=== PATIENT | male | born 1960 | race American Indian/Alaskan Native ===

== ENCOUNTER 2018-07-09 14:09 | Emergency (ER) | payer OTHER ==
[2018-07-09 14:21] VITALS: BP 143/91; PULSE 79; RESP 18; TEMP 98.4; O2SAT 97
--- NOTE | 2018-07-09 17:13 | C.PDOC ---
History Of Present Illness 58 year old male patient presents to the ER with c/o right knee pain. Patient states it happened x5-6 days ago. Patient denies trauma and is able to ambulate. Time Seen by Provider: 07/09/18 14:46 Chief Complaint (Nursing): Lower Extremity Problem/Injury History Per: Patient History/Exam Limitations: no limitations Onset/Duration Of Symptoms: Days (x5-6) Current Symptoms Are (Timing): Still Present Past Medical History Reviewed: Historical Data, Nursing Documentation, Vital Signs Vital Signs: Last Vital Signs Temp 98.4 F 07/09/18 14:18 Pulse 79 07/09/18 14:18 Resp 18 07/09/18 14:18 BP 143/91 H 07/09/18 14:18 Pulse Ox 97 07/09/18 17:46 - Medical History PMH: HTN Family History: States: No Known Family Hx - Social History Hx Alcohol Use: Yes Hx Substance Use: No Review Of Systems Except As Marked, All Systems Reviewed And Found Negative. Constitutional: Negative for: Other (recent trauma on right knee) Musculoskeletal: Positive for: Leg Pain (right knee pain) Physical Exam - Physical Exam Appears: Well, Non-toxic, No Acute Distress Skin: Normal Color, Warm, Dry Head: Atraumatic, Normacephalic Eye(s): bilateral: Normal Inspection Cardiovascular: Rhythm Regular Respiratory: Normal Breath Sounds Extremity: Normal ROM (x4), Tenderness (mild tenderness on lateral aspect of knee), No Pedal Edema, Capillary Refill (<2 sec), No Deformity, Swelling (mild swelling on lateral aspect of knee) Pulses: Left Dorsalis Pedis: Normal, Right Dorsalis Pedis: Normal Neurological/Psych: Oriented x3, Normal Speech, Normal Motor, Normal Sensation, Normal Reflexes Gait: Steady ED Course And Treatment O2 Sat by Pulse Oximetry: 97 (RA) Pulse Ox Interpretation: Normal - Other Rad Knee X-Ray: Interpreted by Me, Viewed By Me Interpretation: no fracture. no dislocation Medical Decision Making Medical Decision Making: Impression: right knee pain Plans: -- XR right knee Reassess: Patient is resting comfortably. Patient is advised to f/u with PCP in 1-2 days. Disposition - Disposition Referrals: Carlos Wise, [Non-Staff] - Disposition: HOME/ ROUTINE Disposition Time: 16:30 Condition: GOOD Additional Instructions: ROSIE REDDY, thank you for letting us take care of you today. Your provider was Bola Finch DO and you were treated for LEG PAIN. The emergency medical care you received today was directed at your acute symptoms. If you were prescribed any medication, please fill it and take as directed. It may take several days for your symptoms to resolve. Return to the Emergency Department if your symptoms worsen, do not improve, or if you have any other problems. Please contact your doctor or call one of the physicians/clinics you have been referred to that are listed on the Patient Visit Information form that is included in your discharge packet. Bring any paperwork you were given at discharge with you along with any medications you are taking to your follow up visit. Our treatment cannot replace ongoing medical care by a primary care provider outside of the emergency department. Thank you for allowing the [facility] team to be part of your care today. Follow up with your primary care doctor in 3-5 days for re-evaluation and further management. Prescriptions: Ibuprofen [Motrin] 600 mg PO Q6 PRN #20 tab PRN Reason: Pain, Moderate (4-7) Instructions: Knee Sprain (DC) Forms: Exent (Bulgarian), Work Excuse - Clinical Impression Clinical Impression: Knee sprain - Scribe Statement The provider has reviewed the documentation as recorded by the Lucretia Owen Do Provider Attestation: All medical record entries made by the Jovanniibjacki were at my direction and personally dictated by me. I have reviewed the chart and agree that the record accurately reflects my personal performance of the history, physical exam, medical decision making, and the department course for this patient. I have also personally directed, reviewed, and agree with the discharge instructions and disposition.
--- NOTE | 2018-07-09 17:47 | RAD ---
Date of service: 07/09/2018 PROCEDURE: Right Knee Radiographs. HISTORY: r/o fx COMPARISON: None. FINDINGS: BONES: No acute fracture. Proliferative hypertrophic changes emanating from the femoral condyle and tibial plateau regions. JOINTS: Normal. No osteoarthritis. JOINT EFFUSION: Suprapatellar joint effusion. OTHER FINDINGS: None. IMPRESSION: No acute fractures. Suprapatellar joint effusion identified.
== END 2018-07-09 16:59 | disposition home or self-care (01) ==
LOC: C.ER 14:09
DX: S83.91XA Sprain of unspecified site of right knee, initial encounter (principal); X58.XXXA Exposure to other specified factors, initial encounter; I10 Essential (primary) hypertension

== ENCOUNTER 2019-02-26 06:38 | Outpatient (CLI) | payer OTHER | END 2019-02-26 06:39 | disposition home or self-care (01) | LOC: C.LAB 06:38 ==

== ENCOUNTER 2019-03-25 06:10 | Outpatient (CLI) | payer OTHER | END 2019-03-25 06:11 | disposition home or self-care (01) | LOC: C.LAB 06:10 | DX: E11.21 Type 2 diabetes mellitus with diabetic nephropathy (principal); E78.2 Mixed hyperlipidemia; I10 Essential (primary) hypertension ==

== ENCOUNTER 2019-03-25 06:14 | Outpatient (CLI) | payer OTHER | END 2019-03-25 06:15 | disposition home or self-care (01) | LOC: C.LAB 06:14 | DX: N18.4 Chronic kidney disease, stage 4 (severe) (principal) ==